=== PATIENT | female | born 1940 | race Caucasian/White ===

== ENCOUNTER → 2016-05-28 | Outpatient (CLI) | payer MEDICARE, BC ==
[~2016-05-28] MED LIST: ASPIRIN 32325 MG/TAB PO; ASPIRIN 81M81 MG/TA2 PO; ATARAX 25MG25 MG/TAB PO; ATIVAN 0.50.5 MG/TAB PO; ATIVAN 1MG T1 MG/TAB; KLONOPIN 0.5MG0.5 MG PO; KLOR-CON M2020 MEQ PO; NAPROXEN 3375 MG/TAB; NORCO 325 MG-51 TAB PO; PHENERGAN 25 TA25 MG PO; PRAVACHOL10 MG PO; SYNTHROID0.075 MG/T PO; VITAMIN D1000 IU PO; XARELTO20 MG PO; ZOFRAN 4MG T4 MG/TAB PO; ZOFRAN ODT4 MG PO
== END ==
LOC: MC.RAD 14:20
DX: Z12.31 Encounter for screening mammogram for malignant neoplasm of breast (principal)

== ENCOUNTER 2016-07-03 10:18 | Emergency (ER) | payer MEDICARE, BC ==
[~2016-07-03] VITALS: Ht 147.3 cm; Wt 48.6 kg
[~2016-07-03 10:18] MED LIST changes: -NORCO 325 MG-51 TAB PO
[2016-07-03 10:20] VITALS: TEMP 96.6
[2016-07-03 11:15] LABS: BASO % 0.5 % (0.0-2.0); EOS # 0.1 (0.0-0.7); EOS % 0.8 % (0-4.0); GRAN # 3.4 (1.4-6.5); GRAN % 51.4 % (42.2-75.2); HEMATOCRIT 42.4 % (37.0-47.0); LYMPH # 2.7 (1.2-3.4); LYMPH % 41.6 % (20.0-51.0); MEAN CELL VOLUME 88 fl (80.0-100.0); MEAN CORPUSCULAR HEMOGLOBIN 29 pg (27.0-31.0); MEAN CORPUSCULAR HGB CONC 33 g/dl (33.0-37.0); MEAN PLATELET VOLUME 10.4 fl (7.4-10.4); MONO # 0.4 (0.1-0.6); MONO % 5.4 % (1.7-9.3); PLATELET COUNT 281 K/mm3 (130-400); RED BLOOD COUNT 4.82 M/mm3 (4.10-5.30); REDCELL DISTRIBUTION WIDTH-CV 13.6 % (11.5-14.5); WHITE BLOOD COUNT 6.5 K/mm3 (4.8-10.8)
[2016-07-03 11:18] LABS: ALBUMIN 3.8 gm/dL (3.5-5.0); BILIRUBIN,TOTAL 0.6 mg/dL (0.0-1.0); CALCIUM 8.8 mg/dL (8.4-10.2); CREATININE, serum 0.53 mg/dL (0.52-1.25); POTASSIUM 3.5 mmol/L (3.4-5.0); TOTAL PROTEIN 6.4 gm/dL (6.4-8.2)
[2016-07-03 12:01] LABS: PH 6 (5-8); SQUAMOUS EPITHELIAL 0-2 /hpf; URINE APPEARANCE Clear; URINE BACTERIA None Seen /hpf; URINE BILIRUBIN Negative (NEGATIVE); URINE BLOOD 1+ (NEGATIVE); URINE COLOR Yellow; URINE GLUCOSE Negative (NEGATIVE); URINE KETONE 1+ (NEGATIVE); URINE UROBILINOGEN Negative (NEGATIVE); URINE WBC 0-2 /hpf
[2016-07-03] MEDS ORDERED: NORCO 325 MG-51 TAB PO (15:42)
[2016-07-03 17:06] LABS: TROPONIN-I 0.057 ng/mL (0.000-0.034)
[2016-07-03 17:58] LABS: PROTHROMBIN TIME 11.5 SECONDS (9.7-12.8)
[2016-07-03 18:21] VITALS: BP 146/92; PULSE 88
== END 2016-07-03 18:13 | disposition short-term general hospital (02) ==
LOC: COL.ER 10:18
PROVIDERS: Emergency Medicine
DX: I21.4 Non-ST elevation (NSTEMI) myocardial infarction (principal); R10.11 Right upper quadrant pain
CPT/HCPCS: J1650; J1885; J2405; J2550; J2765; J2930; J3010; J7030; Q9967

== ENCOUNTER → 2018-07-06 | Outpatient (CLI) | payer MEDICARE, BC ==
[~2018-07-06] MED LIST changes: +NORCO 325 MG-51 TAB PO
== END ==
LOC: MC.RAD 10:11
DX: Z12.31 Encounter for screening mammogram for malignant neoplasm of breast (principal)

== ENCOUNTER 2018-10-07 20:49 | Emergency (ER) | payer MEDICARE, BC ==
[~2018-10-07] VITALS: Ht 147.3 cm; Wt 45.5 kg
[2018-10-07 21:04] VITALS: TEMP 98.3
[2018-10-07 21:46] LABS: HEMATOCRIT 39.2 % (37.0-47.0); HEMOGLOBIN 13.1 g/dl (12.5-16.0); MEAN CELL VOLUME 88 fl (80.0-100.0); MEAN CORPUSCULAR HEMOGLOBIN 29 pg (27.0-31.0); MEAN CORPUSCULAR HGB CONC 33 g/dl (33.0-37.0); MEAN PLATELET VOLUME 10.3 fl (7.4-10.4); PLATELET COUNT 274 K/mm3 (130-400); RED BLOOD COUNT 4.45 M/mm3 (4.10-5.30); REDCELL DISTRIBUTION WIDTH-CV 13.5 % (11.5-14.5)
[2018-10-07 21:51] LABS: ALANINE AMINOTRANSFERASE 26 U/L (9-52); ALBUMIN 3.9 gm/dL (3.5-5.0); ALKALINE PHOSPHATASE 45 U/L (50-136); ANION GAP 13 mmol/L (7-16); AST,SGOT 36 U/L (15-37); BILIRUBIN,TOTAL 0.7 mg/dL (0.0-1.0); BLOOD UREA NITROGEN 18 mg/dL (7-17); CALCIUM 8.7 mg/dL (8.4-10.2); CARBON DIOXIDE 18 mmol/L (22-30); CHLORIDE 94 mmol/L (98-107); CREATININE, serum 0.37 (0.52-1.25); GLUCOSE 129 mg/dL (74-106); LIPASE 88 U/L (23-300); POTASSIUM 3.4 mmol/L (3.4-5.0); SODIUM 125 mmol/L (137-145); TOTAL PROTEIN 6.4 gm/dL (6.4-8.2)
[2018-10-07 22:13] LABS: C-REACTIVE PROTEIN < 0.5 mg/dL (0.0-0.9); TROPONIN-I < 0.012 ng/mL (0.000-0.035)
[2018-10-07] MEDS ORDERED: NORCO 325 MG-51 TAB PO (22:35)
[2018-10-07] MEDS ORDERED: ZOFRAN 4MG T4 MG/TAB PO (22:35)
[2018-10-07 22:36] LABS: LYMPHOCYTE 37 % (20.0-51.0); NEUTROPHILS 61 % (42.0-75.2)
[2018-10-07 22:37] LABS: PLATELET ESTIMATE NORMAL (NORMAL)
[2018-10-07 23:02] VITALS: BP 140/74; PULSE 71
== END 2018-10-07 23:03 | disposition home or self-care (01) ==
LOC: COL.ER 20:49
PROVIDERS: Emergency Medicine
DX: E87.1 Hypo-osmolality and hyponatremia (principal); M54.6 Pain in thoracic spine; M54.2 Cervicalgia; E03.9 Hypothyroidism, unspecified; Z79.82 Long term (current) use of aspirin
CPT/HCPCS: J2405; J3010; J7030

== ENCOUNTER → 2019-06-24 | Outpatient (CLI) | payer MEDICARE, BC | LOC: COL.RAD 11:04 | DX: Z01.812 Encounter for preprocedural laboratory examination (principal); K44.9 Diaphragmatic hernia without obstruction or gangrene; M41.86 Other forms of scoliosis, lumbar region | CPT/HCPCS: Q9967 ==

== ENCOUNTER 2020-02-17 10:06 | Observation (INO) | payer MEDICARE, BC ==
[~2020-02-17] VITALS: Ht 144.8 cm; Wt 45.8 kg
[~2020-02-17 10:06] MED LIST changes: -VITAMIN D1000 IU PO; +VITAMIN D31000 I1 PO
[2020-02-17 11:04] LABS: HEMATOCRIT 41.7 % (37.0-47.0); HEMOGLOBIN 13.9 g/dl (12.5-16.0); MEAN CELL VOLUME 86 fl (80.0-100.0); MEAN CORPUSCULAR HEMOGLOBIN 29 pg (27.0-31.0); MEAN CORPUSCULAR HGB CONC 33 g/dl (33.0-37.0); MEAN PLATELET VOLUME 10.8 fl (7.4-10.4); PLATELET COUNT 404 K/mm3 (130-400); RED BLOOD COUNT 4.88 M/mm3 (4.10-5.30); REDCELL DISTRIBUTION WIDTH-CV 13.2 % (11.5-14.5)
[2020-02-17 11:15] LABS: ALBUMIN 3.8 gm/dL (3.5-5.0); BILIRUBIN,TOTAL 0.6 mg/dL (0.0-1.0); CALCIUM 9.5 mg/dL (8.4-10.2); CREATININE, serum 0.37 (0.52-1.25); TOTAL PROTEIN 6.6 gm/dL (6.4-8.2)
[2020-02-17 11:17] LABS: POTASSIUM 2.7 mmol/L (3.4-5.0)
[2020-02-17 11:32] LABS: BAND 14 % (0-10); LYMPHOCYTE 25 % (20.0-51.0); NEUTROPHILS 60 % (42.0-75.2); OVALOCYTES 1+; PLATELET ESTIMATE NORMAL (NORMAL)
[2020-02-17 15:29] LABS: CALCIUM 9.4 mg/dL (8.4-10.2); CREATININE, serum 0.42 (0.52-1.25)
[2020-02-17 15:30] LABS: POTASSIUM 2.8 mmol/L (3.4-5.0)
[2020-02-17] MEDS ORDERED: XARELTO20 MG PO (17:58)
[2020-02-17] MEDS ORDERED: PROTONIX 40MG T40 MG PO (17:59)
[2020-02-17] MEDS ORDERED: LEXAPRO 10MG10 MG PO (17:59)
[2020-02-17] MEDS ORDERED: VOLTAREN GEL 1%1 TU TP (18:01)
[2020-02-17 18:48] LABS: HEMATOCRIT 41.8 % (37.0-47.0); HEMOGLOBIN 14.2 g/dl (12.5-16.0); MEAN CELL VOLUME 84 fl (80.0-100.0); MEAN CORPUSCULAR HEMOGLOBIN 29 pg (27.0-31.0); MEAN CORPUSCULAR HGB CONC 34 g/dl (33.0-37.0); MEAN PLATELET VOLUME 10.2 fl (7.4-10.4); PLATELET COUNT 476 K/mm3 (130-400); RED BLOOD COUNT 4.96 M/mm3 (4.10-5.30); REDCELL DISTRIBUTION WIDTH-CV 13.2 % (11.5-14.5)
[2020-02-17 19:01] LABS: CALCIUM 9.3 mg/dL (8.4-10.2); CREATININE, serum 0.39 (0.52-1.25); MAGNESIUM 2.6 mg/dL (1.6-2.3)
[2020-02-17 19:11] LABS: POTASSIUM 2.8 mmol/L (3.4-5.0)
[2020-02-17] MEDS ORDERED: FERRO-TIME325 MG PO (19:36)
[2020-02-17 19:49] LABS: BAND 1 % (0-10); EOSINOPHIL 1 % (0-4); LYMPHOCYTE 15 % (20.0-51.0); NEUTROPHILS 78 % (42.0-75.2)
[2020-02-17 19:51] LABS: PLATELET ESTIMATE INCREASED (NORMAL); TOXIC GRANULATION PRESENT
[2020-02-17 20:02] VITALS: BP 108/62; PULSE 92; TEMP 97.6
--- NOTE | 2020-02-17 20:10 | NUR ---
PATIENT ADMIT FROM ED VIA CART TO ROOM 350. SALINE LOCK TO RAC AND LAC IN PLACE, FLUSHES WELL, IV SITES CLEAR. DENIES CHEST PAIN. REPORT SHORTNESS OF BREATH WITH EXERTION. DENIES NAUSEA, DENIES URGE TO VOID. OBSERVED TREMORS TO BUE THAT PATIENT STATES IS DUE TO INCREASED ANXIETY, REPORTS TAKES ATIVAN FOR ANXIETY. OBSERVED TRANSFER FROM ED CART TO BED WITH X1 ASST WITH NO PROBLEMS. PATIENT ON ROOM AIR.
[2020-02-17 20:11] VITALS: BP 136/76; PULSE 88; TEMP 97.6
[2020-02-17 20:25] VITALS: BP 136/76; PULSE 88; TEMP 97.6
--- NOTE | 2020-02-17 23:50 | NUR ---
PATIENT REQUESTING TO HAVE ATIVAN REPEAT DOSING AT THIS TIME TO HELP WITH SLEEP SHE TAKES AT HOME. DR MONTIEL CONTACTED/INFORMED OF PATIENT'S REQUEST FOR ADDITIONAL LORAZEPAM SHE TAKES AT HOME. ORDERS GIVEN AND WILL BE PROCESSED ACCORDINGLY.
--- NOTE | 2020-02-18 01:00 | NUR ---
URINE SPECIMEN COLLECTED VIA CLEAN CATCH VOID, SENT TO LAB PER D.O.
[2020-02-18 01:29] LABS: COLLECTION METHOD CLEAN CATCH
[2020-02-18 02:13] LABS: AMORPHOUS CRYSTAL Present /uL; MUCOUS Present /lpf; PH 7 (5-8); SQUAMOUS EPITHELIAL 0-2 /hpf; URINE APPEARANCE Cloudy; URINE BACTERIA Rare /hpf; URINE BILIRUBIN Negative (NEGATIVE); URINE BLOOD 1+ (NEGATIVE); URINE COLOR Yellow; URINE GLUCOSE Negative (NEGATIVE); URINE KETONE 2+ (NEGATIVE); URINE LEUKOCYTE ESTERASE Negative (NEGATIVE); URINE NITRATE Negative (NEGATIVE); URINE PROTEIN(semi-quant) 1+ (NEGATIVE); URINE UROBILINOGEN Negative (NEGATIVE)
[2020-02-18 03:42] VITALS: BP 140/66; PULSE 81; TEMP 98.7
[2020-02-18 07:09] LABS: HEMATOCRIT 37.1 % (37.0-47.0); HEMOGLOBIN 12.5 g/dl (12.5-16.0); MEAN CELL VOLUME 85 fl (80.0-100.0); MEAN CORPUSCULAR HEMOGLOBIN 29 pg (27.0-31.0); MEAN CORPUSCULAR HGB CONC 34 g/dl (33.0-37.0); MEAN PLATELET VOLUME 10.8 fl (7.4-10.4); PLATELET COUNT 424 K/mm3 (130-400); RED BLOOD COUNT 4.36 M/mm3 (4.10-5.30); REDCELL DISTRIBUTION WIDTH-CV 13.2 % (11.5-14.5)
--- NOTE | 2020-02-18 07:15 | NUR ---
CHANGE OF SHIFT REPORT GIVEN TO DAY SHIFT NURSEJORGE.
[2020-02-18 07:19] LABS: ALBUMIN 3.4 gm/dL (3.5-5.0); BILIRUBIN,TOTAL 0.6 mg/dL (0.0-1.0); CALCIUM 8.4 mg/dL (8.4-10.2); CREATININE, serum 0.39 (0.52-1.25); MAGNESIUM 2.2 mg/dL (1.6-2.3)
[2020-02-18 07:23] LABS: POTASSIUM 2.6 mmol/L (3.4-5.0)
[2020-02-18 08:02] VITALS: BP 170/85; PULSE 90; TEMP 97.5
[2020-02-18 08:33] LABS: BAND 17 % (0-10); BASOPHIL 1 % (0-2); EOSINOPHIL 4 % (0-4); LYMPHOCYTE 18 % (20.0-51.0); NEUTROPHILS 53 % (42.0-75.2); PLATELET ESTIMATE NORMAL (NORMAL)
--- NOTE | 2020-02-18 10:21 | NUR ---
Parenting Skills Instructor met with patient to discuss discharge planning. Patient lives in [place] with her , Wes (ph#[phone]) and sees Dr. Lucia for primary care. Patient obtains medications from [facility] with no difficulties. Patient does not use any DME. Patient reports that the last few weeks she has been more dependent on her and has been holding his hand when walking. SW spoke with patient about Home Health Services and that HH can offer PT/OT/Nursing. Patient states she does not feel that she needs these services at this time. Patient states she has DPOA-HC completed which designates her and her son, Max who lives locally. Patient states she has another son, Jori who lives in [place]. Patient plans to return home at discharge. SW contacted patient's , Wes to review discharge plan. Wes is in agreement with patient returning home when she is ready for discharge. [facility] collaborated with RNJenniffer about ordering PT/OT for patient. SW will continue to follow.
[2020-02-18 12:10] VITALS: BP 149/92; PULSE 81; TEMP 97.8
--- NOTE | 2020-02-18 14:00 | NUR ---
Patient resting in bed at this time. Patient is alert and oriented, answers questions appropriately. Patient has fluids running to right and left AC. Patient reports that having fluids running to both arms is increasing her anxiety and she feels 'tied down'. Called pharmacy and was instructed to allow 4 hour bag of zosyn to finish running piggyback with IVF. When that bag is finished, run the last two bags of potassium. Will run per pharmacy advice.
[2020-02-18 16:28] VITALS: BP 148/83; PULSE 87; TEMP 97.4
--- NOTE | 2020-02-18 19:05 | NUR ---
Patient resting in bed at this time. After shower INT to right AC was lost, left AC still good, IVF and potassium hooked up to run to LAC. Patient denies pain or nausea at this time, call light within reach.
--- NOTE | 2020-02-18 20:00 | NUR ---
Report received, assumed care for mold shifter. Assessment complete. A&Ox3-drowsy. VS stable. Denies pain/nausea/shortness of breath. Voiding without difficulty. Tolerating liquids. Peg g tube to left side without drainage. Plan of care discussed for this shift for HS meds/calling for needs/assistance to bathroom. Verbalizes understanding/denies questions/concerns. Call light in reach. Will monitor.
[2020-02-18 20:05] VITALS: BP 158/88; PULSE 85; TEMP 98.4
[2020-02-18 23:07] VITALS: BP 132/68; PULSE 84; TEMP 97.8
[2020-02-19 01:00] VITALS: BP 148/76; PULSE 88; TEMP 98.8
--- NOTE | 2020-02-19 02:41 | NUR ---
Potassium level 3.1-protocol ordered. New IV site placed to right wrist-20g-1 attempt due to other site needed for slow Zosyn.
[2020-02-19 04:09] VITALS: BP 152/84; PULSE 80; TEMP 98
--- NOTE | 2020-02-19 05:01 | NUR ---
Called c/o pain to right wrist IV site. States the site is burning like it did yesterday. Site WNL-no redness/swelling noted-flushes well with good blood return. Restarted potassium at 85ml/hr. States burning is less and more tolerable. Will continue to monitor.
[2020-02-19 06:38] LABS: HEMATOCRIT 39.5 % (37.0-47.0); HEMOGLOBIN 13.1 g/dl (12.5-16.0); MEAN CELL VOLUME 86 fl (80.0-100.0); MEAN CORPUSCULAR HEMOGLOBIN 29 pg (27.0-31.0); MEAN CORPUSCULAR HGB CONC 33 g/dl (33.0-37.0); MEAN PLATELET VOLUME 10.5 fl (7.4-10.4); PLATELET COUNT 450 K/mm3 (130-400); REDCELL DISTRIBUTION WIDTH-CV 13.3 % (11.5-14.5)
[2020-02-19 07:02] LABS: CALCIUM 8.9 mg/dL (8.4-10.2); CREATININE, serum 0.38 (0.52-1.25); POTASSIUM 3.6 mmol/L (3.4-5.0)
[2020-02-19 07:15] VITALS: BP 150/95; PULSE 92; TEMP 98.1
[2020-02-19 12:13] VITALS: BP 141/87; PULSE 65; TEMP 98.3
--- NOTE | 2020-02-19 14:24 | NUR ---
Patient has been doing well. Denies pain and nausea. Has been up walking in the hallways. Passing flatus without issues. She is having loose stools. Had some dark/black stools. Notified Dr Barbosa, he stated to just watch. Her was here most the morning. Placed a clean gauze to her G-tube site. Pharmacy is delivering the zinc for the site. She is having leakage around the tube. No other changes at this time. Call light within reach.
--- NOTE | 2020-02-19 16:05 | NUR ---
Care resumed from Jaimie Becerra. Patient provided with G tube care. Zinc oxide ointment applied. New drain sponge. Patietn ambulated halls with her spouse and fresh linens applied to bed. Assisted with hygiene. Patient going to sit up and eat more of her low fiber lunch. Domenico rodriguez.
[2020-02-19 16:15] VITALS: BP 118/65; PULSE 86; TEMP 98.6
--- NOTE | 2020-02-19 17:36 | NUR ---
Patient resting in bed. Provided with warm blanket for comfort. She requested ativan, let her know when she was able to have next PRN dose. Patient reports taking 0.5mg every few hours at home. Patient G tube gauze remains intact. Domenico rodriguez.
--- NOTE | 2020-02-19 19:16 | NUR ---
Patient ready for bed. up to the bathroom, brushed her teeth. Hs ativan given. Report to meghan prater
[2020-02-20 05:55] VITALS: BP 133/73; PULSE 79; TEMP 98.1
[2020-02-20 06:56] LABS: HEMOGLOBIN 11.9 g/dl (12.5-16.0); MEAN CELL VOLUME 88 fl (80.0-100.0); MEAN CORPUSCULAR HEMOGLOBIN 29 pg (27.0-31.0); MEAN CORPUSCULAR HGB CONC 33 g/dl (33.0-37.0); MEAN PLATELET VOLUME 10.9 fl (7.4-10.4); PLATELET COUNT 435 K/mm3 (130-400); RED BLOOD COUNT 4.09 M/mm3 (4.10-5.30); REDCELL DISTRIBUTION WIDTH-CV 13.6 % (11.5-14.5)
[2020-02-20 06:58] LABS: HEMATOCRIT 36.1 % (37.0-47.0)
[2020-02-20 07:28] VITALS: BP 143/74; PULSE 87; TEMP 97.8
--- NOTE | 2020-02-20 08:00 | NUR ---
PATIENT IS A&O. VSS. DENIES PAIN. PATIENT IS REQUESTING SOMETHING FOR ANXIETY THIS AM. GAVE PRN ATIVAN PER ORDERS WITH AM MEDS. NOTED SMALL AMOUNTS OF BUTTS DRAINAGE TO G-TUBE. CHANGE DRESSING TO G-TUBE AND APPLIED 4X4 DRAIN GAUZE & HYPAFIX. NO C/O N/V. IV FLUIDS INFUSING VIA PUMP INTO RIGHT FORARM IV AT 50CC/HR. HEAD TO TOE ASSESSMENT COMPLETE. PATIENT HOPING TO DISCHARGE HOME LATER TODAY.
[2020-02-20 08:15] LABS: BAND 8 % (0-10); EOSINOPHIL 1 % (0-4); LYMPHOCYTE 56 % (20.0-51.0); NEUTROPHILS 32 % (42.0-75.2); PLATELET ESTIMATE INCREASED (NORMAL)
[2020-02-20 11:16] VITALS: BP 141/75; PULSE 79; TEMP 98.5
[2020-02-20] MEDS ORDERED: PROTONIX 40MG T40 MG PO (12:45)
[2020-02-20] MEDS ORDERED: ZINC OXIDE 28GM TOP (12:45)
[2020-02-20] MEDS ORDERED: AMOXICILLIN 8751 TAB PO (12:46)
--- NOTE | 2020-02-20 15:00 | NUR ---
PATIENT DISCHARGING HOME VIA WC TO PERSONAL VEHICLE WITH . GAVE DISCHARGE INSTRUCTIONS, PRESCRIPTIONS, DRESSING SUPPLIES FOR G-TUBE, AND DISCUSSD F/U APT WITH HER SURGEON ON [place]. CHANGED G-TUBE DRESSING BEFORE DISCHARGE WITH GAUZE & HYPAFIX. DC'D RIGHT FORARM IV, COVERED SITE WITH GAUZE & COBAN. GAVE FIRST DOSE OF ORAL ANTIBIOTIC. PATIENT DRESSING AND PACKED PERSONAL BELONINGS. PATIENT DISCHARGED.
== END 2020-02-20 15:00 | disposition home or self-care (01) ==
LOC: COL.ER 10:06 → SURG 16:21
PROVIDERS: Emergency Medicine; Family Medicine; Surgery; ADMIT Surgery
DX: K94.23 Gastrostomy malfunction (principal); E03.9 Hypothyroidism, unspecified; E87.6 Hypokalemia; E87.1 Hypo-osmolality and hyponatremia; L25.8 Unspecified contact dermatitis due to other agents; E44.0 Moderate protein-calorie malnutrition; F41.9 Anxiety disorder, unspecified; Z79.82 Long term (current) use of aspirin; Z79.899 Other long term (current) drug therapy; Z79.890 Hormone replacement therapy; Z88.2 Allergy status to sulfonamides; Z86.718 Personal history of other venous thrombosis and embolism; Z98.890 Other specified postprocedural states; Z79.01 Long term (current) use of anticoagulants; R63.4 Abnormal weight loss
CPT/HCPCS: OP; G0378; J2270; J2543; J3475; J3480; J7030; Q9967

== ENCOUNTER 2021-01-27 10:42 | Observation (INO) | payer MEDICARE, BC ==
[~2021-01-27] VITALS: Ht 152.4 cm; Wt 45.5 kg
[~2021-01-27 10:42] MED LIST changes: +AMOXICILLIN 8751 TAB PO; +FERRO-TIME325 MG PO; +LEXAPRO 10MG10 MG PO; +PROTONIX 40MG T40 MG PO; +VOLTAREN GEL 1%1 TU TP; +ZINC OXIDE 28GM TOP
[2021-01-27 11:09] LABS: HEMATOCRIT 42.3 % (37.0-47.0); HEMOGLOBIN 13.7 g/dl (12.5-16.0); MEAN CELL VOLUME 91 fl (80.0-100.0); MEAN CORPUSCULAR HEMOGLOBIN 29 pg (27.0-31.0); MEAN CORPUSCULAR HGB CONC 32 g/dl (33.0-37.0); MEAN PLATELET VOLUME 10.9 fl (7.4-10.4); PLATELET COUNT 333 K/mm3 (130-400); RED BLOOD COUNT 4.67 M/mm3 (4.10-5.30); REDCELL DISTRIBUTION WIDTH-CV 13.9 % (11.5-14.5)
[2021-01-27 11:22] LABS: ALBUMIN 4.1 gm/dL (3.4-4.8); BILIRUBIN,TOTAL 0.6 mg/dL (0.2-1.2); C-REACTIVE PROTEIN 0.1 mg/dL (0.00-0.50); CALCIUM 10.3 mg/dL (8.4-10.2); CREATININE, serum 0.69 mg/dL (0.57-1.11); POTASSIUM 3.3 mmol/L (3.5-4.5); TOTAL PROTEIN 6.8 gm/dL (6.2-8.1)
[2021-01-27 11:23] LABS: EOSINOPHIL 2 % (0-4); LYMPHOCYTE 45 % (20.0-51.0); NEUTROPHILS 47 % (42.0-75.2); PLATELET ESTIMATE NORMAL (NORMAL)
[2021-01-27] MEDS ORDERED: ZOFRAN ODT4 MG PO (13:58)
[2021-01-27 17:37] VITALS: BP 168/91; PULSE 117; TEMP 98.5
[2021-01-27 19:34] VITALS: BP 152/86; PULSE 97; TEMP 98.3
--- NOTE | 2021-01-27 19:34 | NUR ---
Patient having nausea. Called FERNANDA Mc. New order for Natalie. Called Dr. Reynoso and notified of consult.
--- NOTE | 2021-01-27 22:06 | NUR ---
Patient assessed. Denies pain, but has nausea. Had been given PRN Zofran. Not wanting to eat or drink anything. Continues on IV fluids per orders. Voices no further questions, needs, or concerns at this time. Resting in bed with call light within reach.
[2021-01-28] VITALS (7 sets, daily range): BP systolic 145–165; BP diastolic 77–86; PULSE 82–100; TEMP 98–99.1
--- NOTE | 2021-01-28 01:46 | NUR ---
Patient requested something for nausea earlier, and called Jesusita, as it was too early to give Zofran. New order received for PRN Compazine. Given as ordered which helped. Patient requesting some tums at this time to help with the acid in her stomach. Called and updated Jesusita.
--- NOTE | 2021-01-28 05:37 | NUR ---
Patient denies having nausea and upset stomach at this time. Denies pain and discomfort. Voices no questions, needs, or concerns at this time. Continues on IV fluids per orders. Patient has not been calling for assistance with toileting. Bed alarm on.
[2021-01-28 08:20] LABS: HEMOGLOBIN 12.3 g/dl (12.5-16.0); MEAN CELL VOLUME 89 fl (80.0-100.0); MEAN CORPUSCULAR HEMOGLOBIN 30 pg (27.0-31.0); MEAN CORPUSCULAR HGB CONC 33 g/dl (33.0-37.0); MEAN PLATELET VOLUME 11.2 fl (7.4-10.4); PLATELET COUNT 292 K/mm3 (130-400); RED BLOOD COUNT 4.15 M/mm3 (4.10-5.30); REDCELL DISTRIBUTION WIDTH-CV 13.7 % (11.5-14.5)
[2021-01-28 08:33] LABS: CALCIUM 8.9 mg/dL (8.4-10.2); CREATININE, serum 0.56 mg/dL (0.57-1.11); POTASSIUM 3.5 mmol/L (3.5-4.5)
[2021-01-28 09:16] LABS: LYMPHOCYTE 30 % (20.0-51.0); NEUTROPHILS 66 % (42.0-75.2)
[2021-01-28 09:18] LABS: PLATELET ESTIMATE NORMAL (NORMAL)
--- NOTE | 2021-01-28 10:00 | NUR ---
Pt transferring to the restroom with standby assist. She does not have an appetite as she feels nausated most of the time. Pt reports not having any pain. Pt has minimal needs at this time, will continue to monitor
--- NOTE | 2021-01-28 13:43 | NUR ---
Anthony met with the pt who stated her perference to return home once medically stable. The pt lives at home with her , jed [phone]. The pt pcp is Dr. brown and gets her medications from [facility]. The pt is independent on all ADLS. Pt not interested in DPOA-HC at this time. SW to await further recommendations and follow up as needed. d/c: Home
--- NOTE | 2021-01-28 14:00 | NUR ---
Pt remains the same. No complaints of pain, just N/V. Pt denies the need for nausea medication as she reports that it only comes on when she tries to eat.
--- NOTE | 2021-01-28 17:40 | NUR ---
Nausea medication given at this time. Pt reported that she still feels the same, but did just have a small amount of emesis which is clear in color consistent with water. Pt reported that she did try to drink some water as her mouth was dry. Continues to not have any pain
--- NOTE | 2021-01-28 20:30 | NUR ---
PT ASSISTED TO BATHROOM, GAIT SLOW, WEAK. REPORTS SHE DOESN'T USE A WALKER AT HOME. HAS SIGNIFICANT SCOLIOSIS. VOIDS AND BACK TO BED. REPORTS MILD NAUSEA, TAKES SIPS OF WATER. IVF TO LEFT FOREARM, CURRENTLY REPLACING POTASSIUM. HAS SL TO RT AC, FLUSHES WELL AND IV PROTONIX GIVEN. IS ALERT AND ORIENTED. DENIES PAIN. HOB ELEVATED FOR COMFORT.
--- NOTE | 2021-01-29 01:50 | NUR ---
ASSISTED TO BATHROOM, VOIDS AND BACK TO BED. NO NAUSEA AT THIS TIME.
[2021-01-29 04:38] VITALS: BP 120/67; PULSE 82; TEMP 98.9
--- NOTE | 2021-01-29 06:00 | NUR ---
TAKES SCHEDULED AM MED WITH SIP OF WATER. NO ANTIEMETICS GIVEN THIS SHIFT, NO EMESIS. HAS BEEN VOIDING WELL.
[2021-01-29 08:25] VITALS: BP 126/57; PULSE 71; TEMP 98.6
[2021-01-29 08:25] LABS: HEMOGLOBIN 13.1 g/dl (12.5-16.0); MEAN CELL VOLUME 89 fl (80.0-100.0); MEAN CORPUSCULAR HEMOGLOBIN 29 pg (27.0-31.0); MEAN CORPUSCULAR HGB CONC 33 g/dl (33.0-37.0); MEAN PLATELET VOLUME 10.9 fl (7.4-10.4); PLATELET COUNT 295 K/mm3 (130-400); RED BLOOD COUNT 4.49 M/mm3 (4.10-5.30); REDCELL DISTRIBUTION WIDTH-CV 13.2 % (11.5-14.5)
[2021-01-29 09:19] LABS: CALCIUM 9.1 mg/dL (8.4-10.2); CREATININE, serum 0.59 mg/dL (0.57-1.11); POTASSIUM 3.6 mmol/L (3.5-4.5)
[2021-01-29 09:24] LABS: BAND 4 % (0-10); LYMPHOCYTE 48 % (20.0-51.0); NEUTROPHILS 42 % (42.0-75.2); PLATELET ESTIMATE NORMAL (NORMAL)
[2021-01-29 12:19] VITALS: BP 145/74; PULSE 87; TEMP 98
[2021-01-29 16:05] VITALS: BP 156/82; PULSE 91; TEMP 99
--- NOTE | 2021-01-29 18:30 | NUR ---
Patient is doing well today. Denies pain. No complaints of nausea today. She is tolerating clear liquids without issues. She was NPO this morning for her UGI study. Mag citrate given as order post her barium, no BM yet. She tried regular food for supper but she stated it was making her stomach hurt so she stopped eating. No other changes at this time. Call light within reach.
[2021-01-29 19:13] VITALS: BP 140/72; PULSE 84; TEMP 97.9
--- NOTE | 2021-01-29 19:39 | NUR ---
PATIENT ALERT AND ORIENTED X3. PATIENT STATES SHE IS NOT IN PAIN BUT THAT HER ABDOMEN IS UNCOMFORTABLE. PATIENT HAS INT IV TO RIGHT AC. PATIENT GIVEN LAST DOSE OF PO POTASSIUM. PATIENT IS ON TELE AND POTASSIUM PROTOCOL. PATIENT ON GENERAL DIET. PATIENT GIVEN WARM BLANKET. PATIENT DENIES FURTHER NEEDS AT THIS TIME. CALL LIGHT WITHIN REACH. HEAD TO TOE ASSESSMENT COMPLETE.
--- NOTE | 2021-01-29 20:32 | NUR ---
PATIENT IS ALERT AND ORIENTED. IN BED WATCHING TV. PATIENT HAS LEFT FOREARM IV. PATIENT IS ON 1500CC FLUID RESTIRCTION AND ON TELE. PATIENT IS ON 2L O2 NASAL CANNULA. PATIENT HAS LEFT ARM RESTRICTED FOR DIALYSIS. PATIENT HAD STRESS TEST DONE TODAY WITH NO SIGNIFICANT CHANGES NOTED AND SHOULD HAVE DIALYSIS IN THE AM. PATIENT GIVEN WARM BLANKET. PATIENT DENIES PAIN OR FURTHER NEEDS AT THIS TIME. CALL LIGHT WITHIN REACH. HEAD TO TOE ASSESSMENT COMPLETE.
--- NOTE | 2021-01-29 21:00 | NUR ---
PATIENT ASLEEP AND HAS SCD'S ON BILATERAL LOWER EXTREMITIES.
[2021-01-29 23:26] VITALS: BP 115/65; PULSE 92; TEMP 98.1
[2021-01-30 03:22] VITALS: BP 124/67; PULSE 83; TEMP 98.1
--- NOTE | 2021-01-30 06:15 | NUR ---
PATIENT DID WELL THROUGHOUT NIGHT. SLEPT THROUGHOUT NIGHT. PATIENT DENIES PAIN OR FURTHER NEEDS AT THIS TIME. WILL REPORT TO DAYSHIFT.
[2021-01-30 06:45] LABS: HEMATOCRIT 38.1 % (37.0-47.0); HEMOGLOBIN 12.5 g/dl (12.5-16.0); MEAN CELL VOLUME 90 fl (80.0-100.0); MEAN CORPUSCULAR HEMOGLOBIN 29 pg (27.0-31.0); MEAN CORPUSCULAR HGB CONC 33 g/dl (33.0-37.0); MEAN PLATELET VOLUME 10.9 fl (7.4-10.4); PLATELET COUNT 308 K/mm3 (130-400); RED BLOOD COUNT 4.25 M/mm3 (4.10-5.30); REDCELL DISTRIBUTION WIDTH-CV 13.2 % (11.5-14.5)
[2021-01-30 07:01] LABS: CALCIUM 8.8 mg/dL (8.4-10.2); CREATININE, serum 0.58 mg/dL (0.57-1.11); POTASSIUM 3.6 mmol/L (3.5-4.5)
[2021-01-30 07:33] LABS: BAND 2 % (0-10); BASOPHIL 1 % (0-2); LYMPHOCYTE 42 % (20.0-51.0); METAMYELOCYTE 1 % (0-0); NEUTROPHILS 48 % (42.0-75.2); PLATELET ESTIMATE NORMAL (NORMAL)
[2021-01-30 07:57] VITALS: BP 128/73; PULSE 77; TEMP 99.2
--- NOTE | 2021-01-30 11:00 | NUR ---
Patient is doing well this morning. No complaints of pain or nausea. Patient has not had a bowel movement yet today. She is voiding without issues. She is eating without pain today. She has been ambulating well without issues. She is hoping to discharge this afternoon. No other changes at this time. Call light within reach.
[2021-01-30] MEDS ORDERED: MILK OF MA400 MG/52 PO (12:13)
[2021-01-30] MEDS ORDERED: PROTONIX 40MG T40 MG PO (12:13)
[2021-01-30] MEDS ORDERED: DULCOLAX S10 MG/SUPP RC (12:27)
[2021-01-30 12:41] VITALS: BP 138/71; PULSE 90; TEMP 97.5
--- NOTE | 2021-01-30 14:00 | NUR ---
Fleets enema given as ordered. She was finally able to have a bowel movement. She stated it was soft and light in colored, explained thats the barium. She will be discharging home. No other changes at this time. Call light within reach.
--- NOTE | 2021-01-30 15:15 | NUR ---
Patient is discharging home. discharge instructions discussed with patient. No questions verbalized. INT discontinued. Explained when follow up appointments are. Explained when her gastric empty study is and the orders to prepare for it. Explained she has an order for it she needs to bring with her. No questions verbalized. Copies of discharge instructions sent with patient. Explained the medications ordered are for after her next study. All belongings packed up and sent with patient. Patient walked out via wheel chair by this nurse.
== END 2021-01-30 15:15 | disposition home or self-care (01) ==
LOC: COL.ER 10:42 → SURG 15:44
PROVIDERS: Emergency Medicine; Physician Assistant; Student in an Organized Health Care Education/Training Program; ADMIT Internal Medicine
DX: R10.11 Right upper quadrant pain (principal); R11.2 Nausea with vomiting, unspecified; D72.829 Elevated white blood cell count, unspecified; K21.9 Gastro-esophageal reflux disease without esophagitis; E87.6 Hypokalemia; E03.9 Hypothyroidism, unspecified; I82.502 Chronic embolism and thrombosis of unspecified deep veins of left lower extremity; Z79.01 Long term (current) use of anticoagulants; Z79.899 Other long term (current) drug therapy; Z79.890 Hormone replacement therapy
CPT/HCPCS: OP; 99222-AI; 99232-AI; 99239; C9113; G0378; J0780; J2060; J2270; J2405; J2543; J3480; J7030; J7120; Q9967

== ENCOUNTER → 2021-02-07 | Outpatient (CLI) | payer MEDICARE, BC ==
[~2021-02-07] MED LIST changes: +DULCOLAX S10 MG/SUPP RC; +MILK OF MA400 MG/52 PO
== END ==
LOC: COL.RAD 07:46
DX: R11.2 Nausea with vomiting, unspecified (principal)
CPT/HCPCS: A9541

== ENCOUNTER 2021-07-10 10:30 | Outpatient (RCR) | payer MEDICARE, BC | END 2021-07-12 | disposition home or self-care (01) | LOC: WSC | DX: M41.86 Other forms of scoliosis, lumbar region (principal) ==

== ENCOUNTER 2021-08-10 14:15 | Outpatient (RCR) | payer MEDICARE, BC | END 2021-08-11 | disposition home or self-care (01) | LOC: WSPT | DX: M41.86 Other forms of scoliosis, lumbar region (principal) ==

== ENCOUNTER 2021-09-06 14:15 | Outpatient (RCR) | payer MEDICARE, BC | END 2021-09-11 | disposition home or self-care (01) | LOC: WSC | DX: M41.86 Other forms of scoliosis, lumbar region (principal) ==

== ENCOUNTER 2021-12-18 14:30 | Emergency (ER) | payer MEDICARE, BC ==
[~2021-12-18] VITALS: Ht 162.6 cm; Wt 47.7 kg
[2021-12-18 15:05] VITALS: BP 185/88; PULSE 88; TEMP 98.2
== END 2021-12-18 15:45 | disposition left against medical advice (07) ==
LOC: COL.ER 14:30
DX: I99.9 Unspecified disorder of circulatory system (principal)

== ENCOUNTER 2023-05-01 14:00 | Outpatient (CLI) | payer MEDICARE, BC ==
[~2023-05-01] VITALS: Ht 162.6 cm; Wt 48.3 kg
[2023-05-01] MEDS ORDERED: Denosumab 60 MG/ML SYRINGE SQ ONE (14:15)
[2023-05-01 14:30] VITALS: BP 151/84; PULSE 81; TEMP 98.6
== END 2023-05-01 14:53 ==
LOC: EUO 14:00
DX: M81.0 Age-related osteoporosis without current pathological fracture (principal)
CPT/HCPCS: J0897

== ENCOUNTER 2024-01-29 23:29 | Emergency (ER) | payer MEDICARE, BC ==
[~2024-01-29] VITALS: Ht 142.2 cm; Wt 45.5 kg
[2024-01-29 23:35] VITALS: TEMP 97.7
[2024-01-30] MEDS ORDERED: LORazepam 2 MG/ML 1 ML VIAL IM ONE (00:45)
[2024-01-30 01:20] VITALS: BP 107/68; PULSE 95
== END 2024-01-30 01:20 | disposition home or self-care (01) ==
LOC: COL.ER 23:29
DX: F41.0 Panic disorder [episodic paroxysmal anxiety] (principal); Z89.422 Acquired absence of other left toe(s); Z89.421 Acquired absence of other right toe(s)
CPT/HCPCS: J2060